=== PATIENT | male | born 1995 | race African-American/Black ===

== ENCOUNTER 2016-07-13 16:40 | Inpatient (IN) | payer MEDICAID ==
[~2016-07-13] VITALS: Ht 162.6 cm; Wt 52.6 kg
--- NOTE | 2016-07-13 | NUR ---
Rounds Patient resting in bed with eyes closed, easily aroused. Patient seems more oriented at this time. Breathing is even and unlabored. IV site patent/clean/dry. Needs addressed. Call light in hand, will continue to monitor. Addendum: 07/14/16 at 0052 by Yonatan Guardado RN Previously entered note for 07/14/16 0000
--- NOTE | 2016-07-13 16:40 | NUR ---
Placed in room 08. Placed on cardiac sonographer, blood pressure machine and pulse oximeter. To gown for exam. Side rails up. Report given to GEMMA Bray.
--- NOTE | 2016-07-13 16:42 | NUR ---
ED MD Higgins at bedside for medical evaluation
[2016-07-13] MEDS ORDERED: NACL 0.9% 1,000 ML IV ONE ×2 (16:45→19:00)
--- NOTE | 2016-07-13 16:45 | NUR ---
PT arrived to ED by BLS with c/o of generalized weakness. PT found laying on floor upon BLS arrival. PT states smoking meth at 1200 today and began to experience heart palpitations. Denies pain. Pupils ANDRES. PT responds appropriately but lethargic. Motor function appropriate. Denies SOB, N/V/D. Side rails up. PT sitting quietly. Will continue to monitor.
[2016-07-13 16:52] VITALS: BP 119/69; PULSE 87; RESP 15; TEMP 98.7; O2SAT 96
--- NOTE | 2016-07-13 16:55 | NUR ---
# 20 gauge angiocath placed to RFA. Use of asceptic technique. Opsite placed over site. Blood return noted. Blood for lab drawn from site. Flushed with 10 cc of normal saline. No evidence of infiltration noted. Patient tolerated well.
[2016-07-13 17:03] LABS: BASOPHILS # (AUTO) 0.1 K/uL (0.0-0.2); EOSINOPHILS # (AUTO) 0.1 K/uL (0.0-0.4); HEMATOCRIT 43.2 % (36-54); HEMOGLOBIN 14.7 g/dL (14.0-18.0); LYMPHOCYTES # (AUTO) 1.6 K/uL (1.0-5.5); LYMPHOCYTES % (AUTO) 24.3 % (20.5-51.5); MEAN CORPUSCULAR HEMOGLOBIN 31 pg (27-31); MEAN CORPUSCULAR HGB CONC 34 % (32-36); MEAN CORPUSCULAR VOLUME 91 fL (79.0-98.0); MONOCYTES # (AUTO) 0.4 K/uL (0.0-1.0); MONOCYTES % (AUTO) 5.7 % (1.7-9.3); NEUTROPHILS # (AUTO) 4.4 K/uL (1.8-7.7); PLATELET COUNT (AUTO) 268 K/uL (130-430); RED BLOOD CELL COUNT(AUTO) 4.75 MIL/uL (4.2-6.2); RED CELL DISTRIBUTION WIDTH 11.5 % (9.0-15.0); WHITE BLOOD COUNT (AUTO) 6.6 K/uL (4.5-11.0)
--- NOTE | 2016-07-13 17:03 | NUR ---
Portable CXR complete.
[2016-07-13 17:22] LABS: CALCIUM 9.6 mg/dL (8.4-11.0); CREATININE 1.08 mg/dL (0.55-1.30); POTASSIUM 3.9 mmol/L (3.5-5.1)
--- NOTE | 2016-07-13 17:32 | NUR ---
PT requested ice chips. Sitting up eating independently. Does not appear in acute distress. Will continue to monitor.
--- NOTE | 2016-07-13 18:30 | NUR ---
Patient resting quietly. No acute distress noted. Vital signs within normal range.
[2016-07-13 19:05] LABS: BARBITURATE, URINE NEGATIVE (NEG <=200); BENZODIAZEPINE, URINE NEGATIVE (NEG <=150); CANNABINOID, URINE POSITIVE (NEG <=50); COCAINE, URINE NEGATIVE (NEG <=150); METHAMPHETAMINES SCREEN,URINE NEGATIVE (NEG <=500); OPIATE, URINE NEGATIVE (NEG <=100); PHENCYCLIDINE SCREEN,URINE NEGATIVE (NEG <=25); UR TRICYCLIC ANTIDEPRESSANTS NEGATIVE (NEG <=300); URINE AMPHETAMINE POSITIVE (NEG <=500); URINE METHADONE NEGATIVE (NEG <=200); URINE OXYCODONE SCREEN NEGATIVE (NEG <=100); URINE PROPOXYPHENE SCREEN NEGATIVE (NEG <=300)
--- NOTE | 2016-07-13 19:10 | NUR ---
Report given to Jesus MENENDEZ.
--- NOTE | 2016-07-13 19:15 | NUR ---
Pt was taken to CT of the head via wheel chair
--- NOTE | 2016-07-13 19:33 | NUR ---
Pt back from CT, resumed IV fluid
--- NOTE | 2016-07-13 20:30 | NUR ---
called sister dimas at [phone] per pt's request Addendum: 07/14/16 at 0339 by DEIRAN called back sister to verify pt's name
[2016-07-13 20:39] LABS: BILIRUBIN,URINE NEGATIVE (NEGATIVE); BLOOD, URINE NEGATIVE (NEGATIVE); COLOR,URINE YELLOW (YELLOW); GLUCOSE,URINE NEGATIVE (NEGATIVE); KETONES,URINE NEGATIVE (NEGATIVE); LEUKOCYTE ESTERASE ,URINE NEGATIVE (NEGATIVE); NITRITE, URINE NEGATIVE (NEGATIVE); PH,URINE 6.5 (5.0-8.0); PROTEIN URINE NEGATIVE (NEGATIVE); UROBILINOGEN,URINE 0.2 (0.2-1.0)
[2016-07-13 20:51] LABS: CLARITY/URINE SLIGHTLY HAZY (CLEAR)
[2016-07-13] MEDS ORDERED: KCL 20 mEq in D5/0.45NS 1000mL 1,000 ML IV ONE (21:30)
--- NOTE | 2016-07-13 21:50 | NUR ---
Patient will be admitted to care of Dr. shore. Admitted to Tele unit. Will go to room 104B. Belongings list completed. Summary report printed. Report given to Irene MENENDEZ at bedside.
[2016-07-13 22:00] VITALS: BP 121/63; PULSE 61; RESP 16; TEMP 98.2; O2SAT 96
--- NOTE | 2016-07-13 22:00 | NUR ---
ADMISSION NOTE Received patient from ER via kaley, received report from Jesus RN. Patient admitted with diagnosis of substance abuse/encephalopathy. Patient oriented to hospital routine, call light, toileting and safety-patient verbalized understanding.
[2016-07-13 22:05] VITALS: BP 121/63; PULSE 61; RESP 16; TEMP 98.2; O2SAT 99
[2016-07-13] MEDS ORDERED: ACETAMINOPHEN 325 MG TABLET PO PRN (22:15)
--- NOTE | 2016-07-13 22:30 | NUR ---
Initial Notes Received patient resting in bed, awake, alert, disoriented, slow to answer. Patient denies any acute distress or pain at this time. Breathing is even and unlabored on room air. IV site patent/clean/dry. Vital signs stable. Educated patient on use of call light for assistance and fall precautions, patient verbalized understanding. Sitter at bedside. Call light in hand, will continue to monitor.
--- NOTE | 2016-07-14 | NUR ---
Rounds Patient resting in bed, awake, seems more oriented. Patient denies any acute distress or pain. Breathing is even and unlabored. IV site patent/clean/dry. Needs addressed. Call light in hand, fall precautions in place. Sitter at bedside. Will continue to monitor.
--- NOTE | 2016-07-14 02:22 | NUR ---
Rounds Patient resting in bed with eyes closed. No acute distress noted, breathing is even and unlabored. IV site patent/clean/dry. Call light in hand, fall precautions in place. Will continue to monitor. Sitter at bedside.
[2016-07-14 04:07] VITALS: BP 108/52; PULSE 60; RESP 14; TEMP 97.1; O2SAT 98
--- NOTE | 2016-07-14 04:38 | NUR ---
Rounds Patient resting in bed with eyes closed, easily aroused. Patient denies any acute distress or pain at this time. Breathing is even and unlabored. IV site patent/clean/dry. Denies any needs at this time. Call light in hand, fall precautions in place. Will continue to monitor.
--- NOTE | 2016-07-14 06:38 | NUR ---
Closing Notes Patient resting in bed with eyes closed, easily aroused. Patient denies any acute distress or pain at this time. Breathing is even and unlabored. IV site patent/clean/dry. Needs addressed throughout shift. Call light in hand, fall precautions in place. Will continue to monitor for changes and safety, and endorse all patient care/needs to oncoming nurse.
[2016-07-14 07:44] LABS: BASOPHILS # (AUTO) 0.2 K/uL (0.0-0.2); BASOPHILS % (AUTO) 3.2 % (0.0-2.0); EOSINOPHILS # (AUTO) 0.1 K/uL (0.0-0.4); EOSINOPHILS % (AUTO) 2.3 % (0.0-4.0); HEMATOCRIT 35.7 % (36-54); HEMOGLOBIN 12.5 g/dL (14.0-18.0); LYMPHOCYTES # (AUTO) 1.6 K/uL (1.0-5.5); LYMPHOCYTES % (AUTO) 34.5 % (20.5-51.5); MEAN CORPUSCULAR HEMOGLOBIN 32 pg (27-31); MEAN CORPUSCULAR HGB CONC 35 % (32-36); MEAN CORPUSCULAR VOLUME 92 fL (79.0-98.0); MONOCYTES # (AUTO) 0.4 K/uL (0.0-1.0); MONOCYTES % (AUTO) 8.4 % (1.7-9.3); NEUTROPHILS # (AUTO) 2.5 K/uL (1.8-7.7); NEUTROPHILS % (AUTO) 51.6 % (40.0-70.0); PLATELET COUNT (AUTO) 200 K/uL (130-430); RED CELL DISTRIBUTION WIDTH 11.2 % (9.0-15.0); WHITE BLOOD COUNT (AUTO) 4.8 K/uL (4.5-11.0)
--- NOTE | 2016-07-14 07:57 | NUR ---
AM Initial Note Pt aaox3 with no complaints of pain or discomfort. No sob, difficulty breathing or distress noted. electronic device monitor in place. IV to right forearm #20g patent with IV fluid infusing. Educated about fall and safety precautions. Bed alarm armed. Encouraged to call for assistance. Call light within reach. Will monitor.
[2016-07-14 08:05] VITALS: BP 107/61; PULSE 72; RESP 17; TEMP 98.2; O2SAT 99
[2016-07-14 08:27] LABS: ALBUMIN 3.5 g/dL (3.4-4.8); CALCIUM 8.8 mg/dL (8.4-11.0); CREATININE 0.82 mg/dL (0.55-1.30); THYROID STIMULATING HORMONE 0.41 uIu/mL (0.34-4.82); TOTAL BILIRUBIN 2.4 mg/dL (0.0-1.0); TOTAL PROTEIN, SERUM 6.3 g/dL (6.4-8.3)
[2016-07-14] MEDS ORDERED: FAMOTIDINE 20 MG TABLET PO SCH (09:00)
--- NOTE | 2016-07-14 09:02 | NUR ---
Nutrition Update Thad scale of 15 (07/13/161999) noted. Pt admitted for Substance Abuse/Encephalopathy Diet: Clear Liquid BMI: 19.9 kg/m2 RD to follow per nutrition care standards.
--- NOTE | 2016-07-14 09:29 | NUR ---
Notes Pt awake speaking with Bakery Products Checker. No complaints of pain or discomfort. No distress noted. Will continue to monitor.
--- NOTE | 2016-07-14 09:48 | NUR ---
Social Service Note: Pt referred to high school social studies teacher by nursing due to pt's substance abuse. TUNE UP MECHANIC met with pt at bedside; pt appears well groomed, normal mood, pt appears guarded, slow to answer questions from TUNE UP MECHANIC, pt's speech soft, pt made poor eye contact. Pt states that he was found passed out on the streets. Pt denies any alcohol use; pt nodded his head when asked if he used drugs; pt stated he uses meth; pt reports "ingesting" or smoking meth; pt states that he also smokes marijuana. Pt states that he uses meth around 2 times a week; pt states that he has only been using meth "for a minute"; pt would not give further details regarding meth use. Pt states that he has a history of anxiety and depression; pt denies taking any medications for his anxiety or depression; pt denies being followed by a therapist or psychiatrist. Pt states that he usually prays to help with his anxiety and depression. Pt states that he lives at "[facility]". Pt states that it is transitional housing for kids trying to emancipate themselves. Pt is very vague about his living environment and income. Pt states that he is not working and is not in school; pt states that he would like to go to school for technology; pt reports having a high school diploma. TUNE UP MECHANIC provided pt with substance abuse treatment resources; TUNE UP MECHANIC spoke with pt about the negative effects of watermelon inspector meth use; pt does not appear motivated at this time to abstain from meth use. TUNE UP MECHANIC encouraged pt to reach out to TUNE UP MECHANIC should any questions/concerns arise. TUNE UP MECHANIC will remain available for support and will follow up as needed.
--- NOTE | 2016-07-14 10:33 | NUR ---
Rounds Pt awake resting in bed. No complaints of pain or discomfort. No distress noted. Encouraged to call for assistance. Call light within reach. Will monitor.
[2016-07-14 12:23] VITALS: BP 100/57; PULSE 70; RESP 18; TEMP 98.7; O2SAT 97
--- NOTE | 2016-07-14 12:24 | NUR ---
Rounds Pt asleep. No significant changes noted. Will monitor.
--- NOTE | 2016-07-14 13:00 | NUR ---
Refused Lunch Pt asleep. No signs of facial grimacing for pain or discomfort. No distress noted. Tried to awaken but went back to sleep and refused to have lunch. Will monitor.
--- NOTE | 2016-07-14 14:00 | NUR ---
Dr. Sallie LIND doing rounds. Plan of care discussed.
--- NOTE | 2016-07-14 14:52 | NUR ---
Rounds Pt awake eating a late regular diet lunch. Encouraged to ambulate as per Dr. Rizo's order. Will monitor.
[2016-07-14 16:04] VITALS: BP 118/64; PULSE 67; RESP 16; TEMP 98.4; O2SAT 98
--- NOTE | 2016-07-14 16:09 | NUR ---
Rounds Pt asleep. No signs of facial grimacing for pain or discomfort. No distress noted.Will monitor.
--- NOTE | 2016-07-14 18:30 | NUR ---
Closing notes Pt awake resting in bed finishing up with dinner. No significant changes noted. Encouraged to call for assistance. Call light within reach. will endorse care to incoming nurse.
--- NOTE | 2016-07-14 19:58 | NUR ---
OPENING NOTE Pt. and bedside report received from day shift nurse. Pt. is awake, alert and resting in bed. Plan of care discussed. Educated pt. regarding plan of care; pt. verbalized understanding and denies any pain or discomfort at this time. Pt. denies any needs at this time. Direct sitter is present at bedside for safety. Room near nurses station. Call light to right hand. Encouraged pt. to use call light for any needs. Will continue to monitor.
--- NOTE | 2016-07-14 22:18 | NUR ---
initial nursing notes: Patient awake in bed. Patient has IV access on the right forearm. Patient denies of having pain.
--- NOTE | 2016-07-14 22:18 | NUR ---
ENDORSED CARE Bedside report given to nurse who will assume care for pt. Endorsed pt. stable with no s/s of acute distress. Pt. denies any pain or discomfort at this time. No significant changes. Safety precautions in place. Sitter present at bedside for safety. Room near nurses station. Endorsed care to GEMMA Johnson.
--- NOTE | 2016-07-14 23:30 | NUR ---
nursing rounds: Patient provided snack per patient's request.
[2016-07-15 01:22] VITALS: BP 120/77; PULSE 60; RESP 14; TEMP 98.2; O2SAT 99
--- NOTE | 2016-07-15 01:30 | NUR ---
nursing rounds: Patient asleep in bed. Patient has no shortness of breath.
--- NOTE | 2016-07-15 03:30 | NUR ---
nursing rounds: Patient sleeping in bed. Patient's breathing pattern is regular and unlabored.
[2016-07-15 03:46] VITALS: BP 113/68; PULSE 60; RESP 16; TEMP 98.2; O2SAT 97
--- NOTE | 2016-07-15 05:30 | NUR ---
nursing rounds: Patient calmly resting in bed. Call light within patient's reach.
--- NOTE | 2016-07-15 07:45 | NUR ---
closing nursing notes: Patient is awake, alert and oriented X 4. Patient is in no acute respiratory distress. No episodes of fall and no injuries throughout the shift supervisor. Provided nursing report to incoming morning shift nurse, Gi Terry LVN, at patient's bedside.
[2016-07-15 08:00] VITALS: BP 121/70; PULSE 71; RESP 17; TEMP 96.8; O2SAT 99
--- NOTE | 2016-07-15 08:00 | NUR ---
AM NOTES PT IN BED AWAKE, ALERT AND ORIENTED. DENIES ANY PAIN OR DISCOMFORT. DENIES ANY SHORTNESS OF BREATH. IVL. AMBULATE TO THE BATHROOM WITH STEADY GAIT. CALL LIGHT IN REACH. WILL MONITOR.
[2016-07-15 09:13] VITALS: BP 121/70; PULSE 71; RESP 16; TEMP 96.8; O2SAT 99
--- NOTE | 2016-07-15 10:00 | NUR ---
D/C INSTRUCTION D/C INSTRUCTION GIVEN AND DISCUSSED TO PT. NO PRESCRIPTION PER DR. BHAGAT. VERBALIZE UNDERSTANDING. ENC. TO FOLLOW UP WITH PRIMARY CARE DOCTOR. NO DISTRESS NOTED. WAITING FOR TAXI AT THIS TIME. IVL AND ARM BAND REMOVED.
--- NOTE | 2016-07-15 10:00 | NUR ---
ARRANGED WITH YELLOW CAB ([facility]) TO TAKE PT TO HER DESTINATION. SPOKE TO SAMIRA. ETA IS 35 TO 40 MINS (9000)
--- NOTE | 2016-07-15 10:35 | NUR ---
DISCHARGE HOME. PT STATED HE IS GOING HOME THE ADDRESS THAT WAS IN THE FACE SHEET.
== END 2016-07-15 10:25 | disposition home or self-care (01) | DRG 52 ==
LOC: SED 16:40 → MERGE 21:30 → STU 21:30 → EDBD 21:30 → STU 21:47 → SMU 07-14 16:25
PROVIDERS: ADMIT Internal Medicine; ATTEND Internal Medicine
DX: G92 Toxic encephalopathy (principal); F15.10 Other stimulant abuse, uncomplicated; F12.10 Cannabis abuse, uncomplicated; K29.00 Acute gastritis without bleeding
CPT/HCPCS: 36415; 70450-TC; 71010; 80048; 80053; 80307; 81003; 83735-TC; 84443-TC; 84484; 85025; 85379; 87040-TC; 87081; 87086; 93005; 96360; 96361; 99285; J7030